=== PATIENT | female | born 1960 | race Caucasian/White ===

== ENCOUNTER 2020-01-07 16:41 | Emergency (ER) | payer OTHER ==
[~2020-01-07] VITALS: Ht 160 cm; Wt 81.6 kg
[~2020-01-07 16:41] MED LIST: AMOX500C25 PO; CLAR500T3 PO; LANS30EC3 PO; METF500T PO
[2020-01-07 16:49] VITALS: BP 111/63
--- NOTE | 2020-01-07 18:21 | NUR ---
PT TO CHAIR D WITH STEADY GAIT
--- NOTE | 2020-01-07 18:26 | NUR ---
C/O HEADACHE AND GENERALIZED BODY PAIN X 1 WK. STATE SUBJECTIVE FEVER. DENIES N/V. STATES DIZZINESS. AMB STEADY GAIT. HX: DM RX: NONE
[2020-01-07] MEDS ORDERED: PROCHLORPERAZINE 10 MG/2 ML VIAL IM ONE (18:45)
[2020-01-07] MEDS ORDERED: KETOROLAC 60 MG/2 ML VIAL IM ONE (18:45)
--- NOTE | 2020-01-07 19:24 | NUR ---
PT SCROLLING THROUGH CELLPHONE AT THIS TIME, NO SIGNS OF DISTRESS.
[2020-01-07 19:45] VITALS: BP 111/63
--- NOTE | 2020-01-07 19:45 | NUR ---
Patient discharged with v/s stable. She states 5/10 tollerable pain. Written and verbal after care instructions given and explained. Patient alert, oriented and verbalized understanding of instructions. Ambulatory with steady gait. All questions addressed prior to discharge. ID band removed. Patient advised to follow up with PMD. Rx of Tylenol given. Patient educated on indication of medication including possible reaction and side effects. Opportunity to ask questions provided and answered.
== END 2020-01-07 19:45 | disposition home or self-care (01) ==
LOC: MED 16:41
DX: R51 Headache (principal); M79.10 Myalgia, unspecified site; R11.0 Nausea; E11.9 Type 2 diabetes mellitus without complications; Z79.899 Other long term (current) drug therapy; Z79.84 Long term (current) use of oral hypoglycemic drugs
CPT/HCPCS: 96372; 99284; J0780; J1885; Q0163